=== PATIENT | male | born 1995 | race Caucasian/White ===

== ENCOUNTER 2018-06-25 12:06 | Emergency (ER) | payer MEDICAID ==
[~2018-06-25] VITALS: Ht 167.6 cm; Wt 61.2 kg
[2018-06-25 12:06] VITALS: BP_SYST 128
[2018-06-25 12:40] VITALS: BP_SYST 121
== END 2018-06-25 12:40 | disposition home or self-care (01) ==
LOC: SED 12:06
DX: M54.2 Cervicalgia (principal); R03.0 Elevated blood-pressure reading, without diagnosis of hypertension; V43.52XA Car driver injured in collision with other type car in traffic accident, initial encounter; Y93.89 Activity, other specified; Y92.410 Unspecified street and highway as the place of occurrence of the external cause; Y99.8 Other external cause status
CPT/HCPCS: 99282

== ENCOUNTER 2019-12-02 10:13 | Emergency (ER) | payer MEDICAID ==
[~2019-12-02] VITALS: Ht 167.6 cm; Wt 68.0 kg
[2019-12-02] MEDS ORDERED: NACL 0.9% 1,000 ML IV ONE (10:33)
[2019-12-02 10:36] VITALS: BP_SYST 123
[2019-12-02] MEDS ORDERED: FAMOTIDINE PF 20 MG/2 ML VIAL IVP ONE (11:30)
[2019-12-02] MEDS ORDERED: ONDANSETRON HCL 4 MG/2 ML VIAL IVP ONE (11:30)
[2019-12-02] MEDS ORDERED: MORPHINE 4 MG/ML INJ. SYRINGE IVP ONE (11:30)
[2019-12-02 11:32] LABS: BASOPHILS % (AUTO) 0.8 % (0.0-2.0); EOSINOPHILS # (AUTO) 0.2 K/uL (0.0-0.4); EOSINOPHILS % (AUTO) 3.7 % (0.0-4.0); HEMATOCRIT 45.3 % (36-54); HEMOGLOBIN 15.5 g/dL (14.0-18.0); LYMPHOCYTES # (AUTO) 2.2 K/uL (1.0-5.5); LYMPHOCYTES % (AUTO) 34.1 % (20.5-51.5); MEAN CORPUSCULAR HEMOGLOBIN 33 pg (27-31); MEAN CORPUSCULAR HGB CONC 34 % (32-36); MEAN CORPUSCULAR VOLUME 96 fL (79.0-98.0); MONOCYTES # (AUTO) 0.4 K/uL (0.0-1.0); MONOCYTES % (AUTO) 6.8 % (1.7-9.3); NEUTROPHILS # (AUTO) 3.5 K/uL (1.8-7.7); NEUTROPHILS % (AUTO) 54.6 % (40.0-70.0); PLATELET COUNT (AUTO) 209 K/uL (130-430); RED BLOOD CELL COUNT(AUTO) 4.74 MIL/uL (4.2-6.2); RED CELL DISTRIBUTION WIDTH 13.3 % (9.0-15.0); WHITE BLOOD COUNT (AUTO) 6.4 K/uL (4.8-10.8)
[2019-12-02 11:43] LABS: CALCIUM 9.2 mg/dL (8.4-11.0); CREATININE 0.84 mg/dL (0.55-1.30)
[2019-12-02 11:47] LABS: PROTHROMBIN TIME 10.4 SECS (9.5-12.5)
[2019-12-02 12:00] LABS: ALBUMIN 4.3 g/dL (3.4-4.8); TOTAL BILIRUBIN 0.5 mg/dL (0.0-1.0)
[2019-12-02 12:56] VITALS: BP_SYST 119
== END 2019-12-02 12:56 | disposition home or self-care (01) ==
LOC: SED 10:13
DX: K92.2 Gastrointestinal hemorrhage, unspecified (principal); Z87.19 Personal history of other diseases of the digestive system; Z87.891 Personal history of nicotine dependence
CPT/HCPCS: 36415; 71045; 80053; 82150; 83605; 83690; 85025; 85610; 85730; 87040; 96374; 96375; 99284; J2270; J2405; J3490; J7030